=== PATIENT | male | born 1930 | race Caucasian/White ===

== ENCOUNTER 2016-12-30 16:44 | Inpatient (IN) | payer MEDICARE ==
[2016-12-30 17:32] LABS: #Lymphocytes 0.8 thou/uL (1.20-3.40); #Monocytes 0.7 thou/uL (0.11-0.59); #Neutrophils 8.6 thou/uL (1.40-6.50); %Basophils 0.1 % (0.0-1.0); %Eosinophils 0.1 % (0.0-10.0); %Lymphocytes 7.7 % (21.0-51.0); Hematocrit 32.4 % (42.0-52.0); Mean Platelet Volume 7.6 fL (7.4-10.4); Red Blood Cell (RBC) Count 3.31 mill/uL (4.70-6.10); White Blood Cell (WBC) Count 10.1 thou/uL (4.8-10.8)
[2016-12-30 17:53] LABS: Lactic Acid - Sepsis 1.4 mmol/L (0.5-2.2)
[2016-12-30 17:55] LABS: ALT (SGPT) 30 U/L (8-55); AST (SGOT) 32 U/L (5-34); Alkaline Phosphatase 80 U/L (40-150); Anion Gap 20 mmol/L (10-20); BUN (Urea Nitrogen) 98 mg/dL (8.4-25.7); Bilirubin, Total 0.3 mg/dL (0.2-1.2); CK (CPK) 864 U/L (30-200); Calc. Creatinine Clearance 0 mL/min (70-130); Calcium 9.5 mg/dL (7.8-10.44); Carbon Dioxide 20 mmol/L (23-31); Chloride 105 mmol/L (98-107); Estimated GFR-MDRD 5; Globulin 3.7 g/dL (2.4-3.5); Magnesium 1.8 mg/dL (1.6-2.6); Protein, Total 6.7 g/dL (5.8-8.1)
[2016-12-30 18:07] LABS: Bilirubin Negative (Negative); Blood, Urine Large (Negative); Glucose, Urine (Dipstick) 250 mg/dL (Negative); Ketone, Urine Trace mg/dL (Negative); Nitrite Negative (Negative); Protein, Urine (Dipstick) 30 mg/dL (Neg-Trace); Urobilinogen 0.2 mg/dL (0.2-1.0)
[2016-12-30 18:12] LABS: Bacteria/HPF Rare-Few HPF (None Seen); Hyaline Casts/LPF 4-6 HYALINE CAST LPF (0-3 Hyaline); RBC/HPF GREATER THAN 50-TNTC HPF (0-3); Squamous Epithelial 0-3 HPF (0-3)
[2016-12-30] MEDS ORDERED: cefTRIAXone\\ROCEPHIN 2 GM VIAL ONE (19:20)
[2016-12-30] MEDS ORDERED: Sodium Chloride 0.9% 100 ML ONE (19:22)
--- NOTE | 2016-12-30 20:20 | RAD ---
PORTABLE CHEST ONE VIEW: 12/30/16 at 6:05 p.m. HISTORY: Difficulty in mobility. FINDINGS: The heart size is normal. The aorta is tortuous. The lungs are expanded without focal areas of conso lidation, pneumothorax or pleural effusions. There are degenerative changes in the spine. IMPRESSION: No acute process. POS: [facility]
[2016-12-30 21:44] LABS: Troponin I 0.026 ng/mL (< 0.028)
--- NOTE | 2016-12-30 22:56 | ULT ---
BILATERAL RENAL ULTRASOUND: History: Acute renal injury. Increased BUN and creatinine. Gross hematuria. FINDINGS: The right kidney measures 11.1 cm in length and the left kidney measures 12.5 cm in length. There is a 1.7 cm cyst in the right kidney and a 2.9 cm cyst in the left mid kidney. Bilateral hydronephrosi s is present. The prostate is enlarged. The bladder wall is thickened measuring 2.1 cm. There is 5 cc of urine in the bladder. IMPRESSION: 1. Bilateral hydronephrosis. 2. Bilateral renal cysts. 3. Prostatic enlargement. POS: [facility]
[2016-12-30] MEDS ORDERED: Bisacodyl 5 MG TAB PO PRN (23:47)
[2016-12-30] MEDS ORDERED: Ondansetron HCl/PF 4 MG/2 ML Vial IVP PRN (23:47)
[2016-12-30] MEDS ORDERED: Acetaminophen 325 MG TAB PO PRN (23:47)
[2016-12-30] MEDS: Sodium Chloride 0.9% 1,000 ML IV SCH (23:50)
[2016-12-31 01:31] LABS: Troponin I 0.033 ng/mL (< 0.028)
--- NOTE | 2016-12-31 03:59 | HP ---
CHIEF COMPLAINT: Weakness. HISTORY OF PRESENT ILLNESS: This is an 86-year-old pleasant gentleman who was apparently in his white hospital state of health when the of the patient whose name is Swati called EMS stating that she want ed the patient to be in a detention because she cannot take care of him anymore. EMS went to her place evaluated the patient, found the patient on lying down on the floor helped him up, but at patria t point, the patient refuses any symptoms and so they put him up on the bed and the called the EMS again saying that he was weak that she could not take care of him and she wanted him to be in a detention and the patient was brought to our emergency room at that time, but initial blood work revealed possible evidence of urinary tract infection, but what was more alarming was a CK of 864 an d a creatinine of 9.27. His creatinine on 08/13/2016 was 2.5. He has been admitted for further adam luation and treatment of the weakness and acute on chronic kidney problem and possible treatment of the UTI. He denies any fever or chills when I speak to him right now, he denies any complaints at a ll, he says that he gets around quite a bit for his age. He admits to fall, but he says that it hap pens rarely because he is old and says that he is pretty independent for his day to day activity and takes his own bath and can feed himself. When the patient got here, his temperature was found to be 95 and they have been using the warming b lanket on him. PAST MEDICAL HISTORY: Significant for dementia and urinary incontinence. SURGICAL HISTORY: Denies any surgical history in the past. SOCIAL HISTORY: Denies alcohol use, drug use or smoking history. ALLERGIES: No known drug allergies. MEDICATIONS: Please see MAR. REVIEW OF SYSTEMS: Significant for weakness, history of dementia, history of falls. Otherwise, no fever, no chills, no headache, no appetite and latencies. No cough, no chest pain, diarrhea, dysuri a, or polyuria. No memory or mood changes. No neck pain. PHYSICAL EXAMINATION: VITAL SIGNS: Blood pressure is 140/80, pulse is 85, temperature right now is 97.4, and O2 sat is 98 . GENERAL: The patient is lying in bed, answering all questions appropriately. Breathing comfortably . HEENT: Atraumatic, normocephalic. Pupils equally round, reactive to light. Extraocular movements intact. Mucous membranes moist. NECK: Supple. No JVD. CHEST: Breath sounds. There are no rales or rhonchi. HEART: S1, S2 normal. No murmurs or gallops. ABDOMEN: Soft, nontender. EXTREMITIES: No cyanosis, clubbing, edema. Distal pulses present. NEUROLOGIC: The patient is alert, awake, oriented. Speech is normal, has decent strength in the ex tremities. LABORATORY DATA: Creatinine is 9.27, BUN is 98. WBC count is 10, hemoglobin is 11, albumin is 3.0, potassium is 4.6, troponin 0.03. EKG 91. Chest x-ray negative. ASSESSMENT AND PLAN: 1. Acute renal failure on chronic kidney disease. Dr. Harrison was contacted from the ER, he wants IV f luids of 100 mL per hour for now and renal ultrasound has been ordered and we will monitor BNP this hospital stay put the patient on renal diet. 2. Possible urinary tract infection, the rbc's are high as well as with wbc's. Urine culture, bloo d culture, nitrite is negative. We will empirically treat with vancomycin and Rocephin. We will de escalate antibiotic therapy following cultures. 3. Anemia. We will monitor this hospital stay. 4. Rhabdomyolysis, possibly secondary to lying on the floor. We will monitor CPK this hospital sta y. 5. Dementia appears to be mild. He answers all questions appropriately right now. 6. Sequential compression devices for deep venous thrombosis prophylaxis. Lea Penny whose num falguni is [phone], will be contacted soon this hospital stay to get more information about the [facility] [place]. I tried to calling them, but no one picked up. I will work with Dr. Harrison and further caring f or the patient.
[2016-12-31 04:07] LABS: Potassium, Urine 16.5 mmol/L
[2016-12-31 04:44] LABS: #Lymphocytes 1.1 thou/uL (1.20-3.40); #Monocytes 0.9 thou/uL (0.11-0.59); #Neutrophils 6.2 thou/uL (1.40-6.50); %Eosinophils 0.6 % (0.0-10.0); %Lymphocytes 13.2 % (21.0-51.0); %Monocytes 10.6 % (0.0-10.0); Hematocrit 30.1 % (42.0-52.0); Mean Platelet Volume 7.7 fL (7.4-10.4); Red Blood Cell (RBC) Count 3.05 mill/uL (4.70-6.10); White Blood Cell (WBC) Count 8.2 thou/uL (4.8-10.8)
[2016-12-31 05:08] LABS: Anion Gap 16 mmol/L (10-20); BUN (Urea Nitrogen) 91 mg/dL (8.4-25.7); CK (CPK) 462 U/L (30-200); Calc. Creatinine Clearance 6 mL/min (70-130); Calcium 8.8 mg/dL (7.8-10.44); Carbon Dioxide 18 mmol/L (23-31); Chloride 107 mmol/L (98-107); Estimated GFR-MDRD 6; Magnesium 1.6 mg/dL (1.6-2.6); Phosphorus 6.1 mg/dL (2.3-4.7)
[2016-12-31] MEDS ORDERED: FLU VACC TS2017-18 (>65YR) 0.5 ML SYRINGE IM ONE (09:00)
--- NOTE | 2016-12-31 09:25 | CON ---
DATE OF CONSULTATION: 12/31/2016 HISTORY OF PRESENT ILLNESS: Mr. Johnston is an 86-year-old white male who was admitted for generali zed weakness. During the initial evaluation, he was noted to be in acute kidney injury with a creat inine 9.27 mg percent. Empiric volume repletion was given. There was a slight improvement of the r enal function when the base met was rechecked this morning. He had also possible UTI. However, I did review the renal ultrasound, it showed bilateral hydronephrosis. We are being consulted for management of this patient's acute kidney injury on top of his possible c hronic renal failure. I have discussed with the nursing staff regarding Urology consult. REVIEW OF SYSTEMS: Positive for generalized malaise. No nausea, no vomiting, no gross hematuria, n o dysuria, no hematochezia, no melena, no hematemesis. Appetite fair. Energy level is fair. No he adache, no diplopia, no fever or chills, no chest pain, no shortness of breath. MEDICATIONS: Tylenol 650 mg q.4 h., normal saline 100 mL an hour, status post Pneumovax, Zofran 4 m g IV q.6 h. Status post ceftriaxone. Status post vancomycin. PAST MEDICAL HISTORY: 1. History of mild dementia. 2. Urinary incontinence. PAST SURGICAL HISTORY: Status post surgical repair of left hydrocele. SOCIAL HISTORY: The patient is and lives in [place]. Two children. Sedentary lifestyle. C urrently no alcohol or IV drug use. Currently not smoking. ALLERGIES: None. TRAUMA: None. IMMUNIZATIONS: Unknown. HOSPITALIZATIONS: Please see past medical history. FAMILY HISTORY: Noncontributory. PHYSICAL EXAMINATION: VITAL SIGNS: Blood pressure 158/80, heart rate 64, respiratory rate 18, temperature 97.5, pulse ox 96%. GENERAL: Awake, alert, oriented only to 2 spheres. SKIN: Decreased turgor. HEENT: Slightly pale conjunctivae, anicteric sclerae. NECK: No neck mass, no carotid bruits, no JVD. CHEST: No deformities. LUNGS: Clear breath sounds. No wheezing, no crackles. HEART: Normal sinus rhythm. No murmur, no gallops or rubs. ABDOMEN: Globular, soft, nontender, no masses. EXTREMITIES: No edema, no deformities. NEUROLOGIC: Moving all extremities. No tremors or asterixis. LABORATORY: 12/30/2016 - Urinalysis: Specific gravity is 1.017, protein is 30, RBCs greater than 5 0, WBC greater than 50. Urine sodium 61. 12/31/2016 - Sodium 137, potassium 4.4, chloride 107, carbon dioxide 18, BUN 91, creatinine 8.05, gl ucose 92, calcium 8.8, phosphorus 6.1. CK 462, albumin 2.7. 12/30/2016 - Creatinine 9.27. Further review of his serum creatinine shows the following; 07/27/2016 creatinine 2.56; 10/02/2015 - creatinine 1.49. White count is 8.2, hemoglobin 10.1. Chest x-ray of 12/30/2016, no CHF, no infiltrates. Renal ultrasound 12/31/2015 shows bilateral hydronephrosis. There is prostatic enlargement, bilater al renal cysts. ASSESSMENT AND PLAN: Acute kidney injury on top of his chronic renal failure. Renal ultrasound mohamud ws bilateral hydronephrosis. Urology consult will be done. Please note there is only 5 mL of urine noted in the bladder, making a low bladder outlet obstruction less likely with this patient. The patient is not clinically uremic. He is not volume overloaded or hyperkalemic and for that reas on, there is no emergent hemodialysis indicated for this patient. Continue supportive care. Contin ue gentle volume repletion. Urology consult has been done. We will insert a Patel catheter with th is patient. We will recheck another base met and CBC in a.m. For the moment, I agree with current supportive management.
--- NOTE | 2016-12-31 09:59 | CT ---
NONCONTRAST ABDOMEN AND PELVIS CT: Comparison: 12-29-03 Clinical history: Bilateral hydronephrosis. FINDINGS: Re-demonstration of an enlarged heterogeneous prostate gland, with a transverse diameter of 6.6 cm. The adjacent urinary bladder demonstrates marked abnormality with a soft tissue mass occupying the r ight posterolateral aspect, which is elliptiform in morphology, with an approximate diameter of 5.4 cm oblique x 2.5 cm in the periappendicular plane. There is mild wall thickening of the remainder of the urinary bladder with perivesicular stranding. Urinary bladder is mildly distended. There is rukhsana ateral moderate hydronephrosis and hydroureter. This is an incompletely assessed cyst of the postero lateral aspect of the left kidney and an exophytic hypodensity emanating from the upper pole right k idney, incompletely characterized on noncontrast imaging. 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 Moderate distention of the gallbladder noted. There are scattered hyperdensities of the hepatic parenchyma indicative of cysts, grossly stable from fabrice or exam. Mild pericardiac fluid is partially imaged. There is bibasilar pleural and parenchymal dens ity with minimal pleural fluid, pancreatic atrophy. There is a focal, oval fat density structure at the floor of the right pelvis. This may relate to a small lipoma or alternatively, may relate to fat insinuating between pelvic floor and musculature. O sseous degenerative change is present. Regional lymph nodes are limited in assessment by noncontrast technique. IMPRESSION: 1. 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 2. Enlarged prostate gland. 3. Bilateral hydroureter nephrosis moderate in degree. 4. Evaluation of the lymph nodes limited by noncontrast technique. POS: [facility]
[2016-12-31] MEDS: Sodium Chloride 0.9% 1,000 ML IV SCH ×2 (10:00→21:19)
--- NOTE | 2016-12-31 12:48 | PDOC.PN ---
- Subjective Encounter Start Date: 12/31/16 Encounter Start Time: 12:46 Patient seen and examined. No new complaints. No overnight events pt is oliguric - Objective MAR Reviewed: Yes Vital Signs & Weight: Vital Signs (12 hours) Temp Pulse Pulse Pulse Resp BP BP 12/31/16 12:00 97.5 F L 72 18 12/31/16 08:05 78 90 146/91 H 140/72 12/31/16 08:00 97.5 F L 64 18 12/31/16 04:00 98.0 F 73 20 BP Pulse Ox Pulse Ox Pulse Ox 12/31/16 12:00 142/67 H 100 12/31/16 08:05 97 98 12/31/16 08:00 158/80 H 96 12/31/16 04:00 145/67 H 98 Weight Weight 137 lb 9.6 oz I&O: 12/30/16 12/31/16 01/01/17 06:59 06:59 06:59 Intake Total 680 Output Total 50 Balance 630 Result Diagrams: 12/31/16 04:28 12/31/16 04:28 Phys Exam - Physical Examination Constitutional: NAD HEENT: PERRLA Neck: no JVD Respiratory: no rales Cardiovascular: no significant murmur Gastrointestinal: non-tender Musculoskeletal: pulses present Neurological: normal sensation Psychiatric: A&O x 3 Dx/Plan (1) Renal failure (ARF), acute on chronic Code(s): N17.9 - ACUTE KIDNEY FAILURE, UNSPECIFIED; N18.9 - CHRONIC KIDNEY DISEASE, UNSPECIFIED Status: Acute (2) Mass of urinary bladder Code(s): N32.89 - OTHER SPECIFIED DISORDERS OF BLADDER Status: Acute (3) Hydronephrosis Code(s): N13.30 - UNSPECIFIED HYDRONEPHROSIS Status: Acute (4) Dementia Code(s): F03.90 - UNSPECIFIED DEMENTIA WITHOUT BEHAVIORAL DISTURBANCE Status: Acute (5) BPH (benign prostatic hyperplasia) Code(s): N40.0 - BENIGN PROSTATIC HYPERPLASIA WITHOUT LOWER URINRY TRACT SYMP Status: Acute - Plan * cont current mx * f/u urology and renal plan * monitor renal function
--- NOTE | 2016-12-31 14:44 | CON ---
DATE OF CONSULTATION: 12/31/2016 HISTORY OF PRESENT ILLNESS: Mr. Johnston is an 86-year-old male who was transferred by EMS from his private residence due to renal failure. Patient lives in a private residence with his , his was unable to continue his ongoing care, EMS was called. The patient was found per note, lying down, workup demonstrated renal failure of creatinine of 9.27, his baseline creatinine last year was 1.4, later this year was 2.56. Patient is currently oriented to himself. Distant family at bedside per my request as patient is a poor historian. He denies history of gross hematuria and sensation of incomplete void. He denies significant tobacco abuse by history. Patient currently sleeping comfortably, easily arousable. The patient has been seen by Nephrology, not requiring hemodialysis at this time. Renal ultrasound demonstrated minimal urine in the bladder, however, demonstrated bilateral hydronephrosis. Given these clinical situations, I did recommend a CT stone protocol. CT does demonstrate bladder with large bladder mass resulting in hydronephrosis with enlarged prostate gland. No significant retroperitoneal lymphadenopathy is appreciated. PAST MEDICAL HISTORY: Per chart review, possible lymphoma followed by Dr. Dixon, history of BPH, history of dementia, and history of urinary incontinence. PAST SURGICAL HISTORY: None by chart review. SOCIAL HISTORY: Negative x3. ALLERGIES: No known drug allergies. CURRENT MEDICATIONS: Include Tylenol, Dulcolax, Zofran, and sodium. He was given Rocephin and vancomycin on admission. PHYSICAL EXAMINATION: VITAL SIGNS: Currently are stable, 97, 72, 18, 100%, and 142/67. Patient is incontinent. GENERAL: Patient is a thin, cachectic, elderly, frail male. HEENT: Grossly unremarkable. HEART: Regular rate. LUNGS: Clear. ABDOMEN: Soft. No CVA tenderness. No gross suprapubic tenderness is appreciated. GENITOURINARY: Uncircumcised phallus, meatus is unremarkable. Testes are descended. There is saturated diaper with yellow urine. No significant blood is noted. Straight cath was passed by nursing staff with no significant postvoid residual, pinked tinged urine which was removed. This patient was quite combative passing the catheter. This was subsequently removed per my request. RECTAL: Digital rectal exam demonstrates a very large prostate with no discrete nodules. EXTREMITIES: No cyanosis, clubbing or edema. PERTINENT LABORATORY DATA: White count is 8, hemoglobin 10, platelets 227, BUN 98, creatinine 9.27, and baseline creatinine is 1.49 in 09/2015, 2.56 on 2016 at admission, 12/30/2016 after 9.27, today it is 8.05, BUN of 91, potassium 4.6, troponins trip a serum lactic acid is normal at 1.4, troponin mildly elevated to normal, 0.03-26. Urinalysis demonstrates 250 of glucose, trace ketones, large blood, negative nitrites, large leukocytes, greater than 50 RBCs, greater than 50 WBCs, 0-3 epithelial cells, rare few bacteria. Cultures: Urine culture preliminary; young culture, final culture pending. Blood cultures negative. Renal ultrasound dated 12/30/2016, bilateral hydronephrosis, bilateral renal cyst, prostatic enlargement. There is only 5 mL of urine in the bladder. CT today's date 12/31/2016 compared to 01/04/2004, there is a large heterogenous prostate gland measuring 6.6 cm. There is a large soft tissue mass occupying the right posterolateral bladder, measuring 5.4 cm, with mild bladder wall thickening. Bilateral hydronephrosis and hydroureter secondary to a large bladder mass. There is aneurysmal dilation of the aorta measuring 3.6 cm. No obvious lymphadenopathy is appreciated; however , it is limited due to noncontrast. IMPRESSION/PLAN: Mr. Johnston is an 86-year-old male with history of lymphoma, benign prostatic hypertrophy, and dementia who was admitted with renal failure of BUN 98, creatinine of 9.27. Workup by Nephrology demonstrates minimal urine in the bladder with bilateral hydronephrosis. CT demonstrates large bladder mass with hydronephrosis. 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 High risk for surgical intervention given his advanced age was reviewed. Indications for TURBT for staging reviewed. Risks and complications including, but not limited to, bleeding, pain, infection, injury to adjacent organs such as bladder perforation, sepsis, clot retention reviewed. Given his advanced age and frail status, patient's extended family states that they will reach out to their elderly family, and will inform me regarding their disposition. As stated inquire regarding conservative observation, ie palliative care, this will be further addressed by the family. If they desired to proceed with surgical intervention, Cardiology consult clearance for TURBT would be advised. Family will let me know regarding final disposition.greater that 90min spent with patient, case management, contacted extended family to coordinate care and disposition. KEANU
--- NOTE | 2016-12-31 15:09 | EKG ---
Test Reason : Blood Pressure : / mmHG Vent. Rate : 067 BPM Atrial Rate : 067 BPM P-R Int : 182 ms QRS Dur : 110 ms QT Int : 412 ms P-R-T Axes : 071 -46 068 degrees QTc Int : 435 ms Normal sinus rhythm Left anterior fascicular block Cannot rule out Anterior infarct (cited on or before 13-AUG-2016) Abnormal ECG Confirmed by MANUEL WOO ([id number]) on 12/31/2016 3:08:46 PM Referred By: ROMAIN Confirmed By:MANUEL WOO
[2016-12-31 16:57] LABS: Troponin I 0.023 ng/mL (< 0.028)
--- NOTE | 2016-12-31 23:08 | CON ---
DATE OF CONSULTATION: 12/31/2016 HISTORY OF PRESENT ILLNESS: The patient is an unfortunate 86-year-old gentleman who presented with urinary retention and was noted to have elevated cardiac enzymes. The patient has no previous cardi ac history. He has chronic renal insufficiency. The patient presented after he had a fall. The pa rosemarie is confused, not able to give a coherent history. His enzymes were noted to be elevated. The patient denies having any chest pain. He denies having any dyspnea. PAST MEDICAL HISTORY: Significant for: 1. Chronic renal insufficiency. 2. Dementia. PAST SURGICAL HISTORY: . SOCIAL HISTORY: He is a former smoker. MEDICATIONS: Unknown to the patient. ALLERGIES: No known drug allergies. REVIEW OF SYSTEMS: Not obtainable. PHYSICAL EXAMINATION: GENERAL/VITAL SIGNS: Ill-appearing gentleman who is confused with a blood pressure of 142/67. HEENT: Poor dentition. NECK: No jugular venous distention. LUNGS: Clear to auscultation. HEART: Regular rate and rhythm. Normal S1, S2. ABDOMEN: Nondistended. EXTREMITIES: Showed no edema. SKIN: Warm and dry. NEUROLOGIC: He is alert and oriented x2. His vascular and radial pulses are 2+. LABORATORY DATA: Sodium 137, potassium 4.4, chloride 107, bicarbonate 18, BUN 91, creatinine is 8.0 . CPK was 864, MB was 40.5, and a troponin was 0.026. White blood cell count is 8.2, hemoglobin 10 .1, hematocrit 30.4, and his platelets 227. EKG revealed normal sinus rhythm with left axis deviati on, Q-waves suggestive of possible previous anteroseptal infarct. IMPRESSION: 1. Acute renal failure. 2. Elevated CPK, MB with normal troponin. 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 4. Anemia. 5. Dementia. This gentleman was found to have a bladder mass causing urinary retention, which resulted in acute r enal failure. The patient is unable to give a coherent history. From a cardiac standpoint, he is n ot an appropriate patient for invasive evaluation. He will be at increased risk of cardiac complica tions should he undergo general anesthesia for noncardiac surgery. An echocardiogram will be obtain ed. We would proceed with surgery if this is felt to be deemed necessary. We will follow this jazlyn ent with you through his hospitalization.
[2017-01-01 06:04] LABS: #Eosinphils 0.1 thou/uL (0.0-0.7); #Lymphocytes 0.9 thou/uL (1.20-3.40); #Monocytes 0.7 thou/uL (0.11-0.59); #Neutrophils 5.2 thou/uL (1.40-6.50); %Eosinophils 1.5 % (0.0-10.0); %Lymphocytes 12.7 % (21.0-51.0); %Monocytes 10.6 % (0.0-10.0); Hematocrit 30.4 % (42.0-52.0); Mean Platelet Volume 7.8 fL (7.4-10.4); Red Blood Cell (RBC) Count 3.07 mill/uL (4.70-6.10)
[2017-01-01] MEDS: Sodium Chloride 0.9% 1,000 ML IV SCH ×2 (06:35→17:37)
[2017-01-01 06:37] LABS: Anion Gap 15 mmol/L (10-20); BUN (Urea Nitrogen) 75 mg/dL (8.4-25.7); BUN/Creatinine Ratio 11.74; CK (CPK) 225 U/L (30-200); Calc. Creatinine Clearance 7 mL/min (70-130); Calcium 8.6 mg/dL (7.8-10.44); Carbon Dioxide 19 mmol/L (23-31); Chloride 107 mmol/L (98-107); Estimated GFR-MDRD 8; Phosphorus 4.9 mg/dL (2.3-4.7)
--- NOTE | 2017-01-01 09:32 | PRG ---
DATE OF SERVICE: 01/01/2017 SUBJECTIVE: Mr. Johnston is an 86-year-old white male who was seen for an acute kidney injury on to p of his chronic heart failure. He was found to have bilateral hydronephrosis. He was also empiric ally volume repleted. His initial creatinine was noted at 9.27; it is now currently at 6.39. He wa s also seen by Urology. An imaging of the abdomen was done, and it showed a bladder mass. The jazlyn ent denies any chest pain or shortness of breath. He is somewhat confused this morning. PHYSICAL EXAMINATION: VITAL SIGNS: Blood pressure is 176/73, heart rate 71, respiratory rate 18, temperature 97.5, pulse ox 100%. GENERAL EXAM: Noted to be awake, somewhat confused, but not in distress. SKIN: Decreased turgor. HEENT: Pinkish conjunctivae, anicteric sclerae. NECK: No neck mass, no carotid bruits, no JVD. CHEST: No deformities. LUNGS: Decreased breath sounds. No wheezing, no crackles. HEART: Normal sinus rhythm. No murmur, no gallops, no rubs. ABDOMEN: Globular, soft, nontender, no masses. EXTREMITIES: No edema. MEDICATIONS: Medications of 01/01/2017 were reviewed. LABORATORY DATA: Laboratories of 01/01/2017, white count 7, hemoglobin 10.2, hematocrit 30.4. Sodi um 137, potassium 3.9, chloride 107, carbon dioxide 19, BUN 75, creatinine 6.39, glucose 86. Phosph orus is 4.9, CK 225, albumin 2.6. 12/31/2016: CT scan of the abdomen and pelvis, prominent urinary bladder mass compatible with malig john. He has also enlarged prostate gland. He has bilateral hydronephrosis, moderate in degree. ASSESSMENT AND PLAN: 1. Acute kidney injury -- multifactorial. Maybe a combination of bilateral hydronephrosis as well as some degree of volume depletion. Continuing current gentle volume repletion. No indication for any emergent dialytic intervention. 2. Bilateral hydronephrosis -- secondary to obstruction with a bladder mass. Urology has been cons ulted. Consideration for hospice is being entertained due to the advanced age of this patient. Fam dougie decision is being awaited. For the moment, agree with current management.
--- NOTE | 2017-01-01 13:25 | PDOC.PN ---
- Subjective Encounter Start Date: 01/01/17 Encounter Start Time: 13:09 Patient seen and examined. No new complaints. No overnight events - Objective MAR Reviewed: Yes Vital Signs & Weight: Vital Signs (12 hours) Temp Pulse Pulse Resp BP BP Pulse Ox 01/01/17 11:00 98.1 F 73 18 164/73 H 95 01/01/17 08:34 97 167/75 H 01/01/17 08:00 97.5 F L 71 18 100 01/01/17 07:44 97 01/01/17 07:00 97.5 F L 71 18 176/73 H 100 01/01/17 03:00 97.9 F 78 16 155/84 H 96 Weight Weight 140 lb 8 oz I&O: 12/31/16 01/01/17 01/02/17 06:59 06:59 06:59 Intake Total 680 4020 240 Output Total 50 Balance 630 4020 240 Result Diagrams: 01/01/17 04:43 01/01/17 04:43 Phys Exam - Physical Examination Constitutional: NAD HEENT: PERRLA Neck: no JVD Respiratory: no wheezing Cardiovascular: no significant murmur Gastrointestinal: non-tender Musculoskeletal: pulses present Neurological: moves all 4 limbs Dx/Plan (1) Renal failure (ARF), acute on chronic Code(s): N17.9 - ACUTE KIDNEY FAILURE, UNSPECIFIED; N18.9 - CHRONIC KIDNEY DISEASE, UNSPECIFIED Status: Acute (2) Mass of urinary bladder Code(s): N32.89 - OTHER SPECIFIED DISORDERS OF BLADDER Status: Acute (3) Hydronephrosis Code(s): N13.30 - UNSPECIFIED HYDRONEPHROSIS Status: Acute (4) Dementia Code(s): F03.90 - UNSPECIFIED DEMENTIA WITHOUT BEHAVIORAL DISTURBANCE Status: Acute (5) BPH (benign prostatic hyperplasia) Code(s): N40.0 - BENIGN PROSTATIC HYPERPLASIA WITHOUT LOWER URINRY TRACT SYMP Status: Acute - Plan * cardilogy, urology and renal input appreciated * palliative care consulted * cont current mx
[2017-01-01 13:55] VITALS: BMI 21.9
[2017-01-02 04:48] LABS: #Eosinphils 0.1 thou/uL (0.0-0.7); #Lymphocytes 1.3 thou/uL (1.20-3.40); #Monocytes 0.8 thou/uL (0.11-0.59); #Neutrophils 5.7 thou/uL (1.40-6.50); %Basophils 0.5 % (0.0-1.0); %Eosinophils 1.4 % (0.0-10.0); %Lymphocytes 16.5 % (21.0-51.0); %Monocytes 10.5 % (0.0-10.0); Hematocrit 27.9 % (42.0-52.0); Mean Platelet Volume 7.5 fL (7.4-10.4); Red Blood Cell (RBC) Count 2.87 mill/uL (4.70-6.10)
[2017-01-02 05:17] LABS: Anion Gap 14 mmol/L (10-20); BUN (Urea Nitrogen) 73 mg/dL (8.4-25.7); CK (CPK) 106 U/L (30-200); Calc. Creatinine Clearance 7 mL/min (70-130); Calcium 8.3 mg/dL (7.8-10.44); Carbon Dioxide 17 mmol/L (23-31); Chloride 109 mmol/L (98-107); Estimated GFR-MDRD 8
--- NOTE | 2017-01-02 11:22 | PDOC.PN ---
- Subjective Encounter Start Date: 01/02/17 Encounter Start Time: 11:20 Patient seen and examined. No new complaints. No overnight events - Objective MAR Reviewed: Yes Vital Signs & Weight: Vital Signs (12 hours) Temp Pulse Resp BP Pulse Ox 01/02/17 11:11 97.9 F 73 16 151/61 H 97 01/02/17 08:00 98.2 F 70 16 98 01/02/17 06:52 98.2 F 70 16 147/89 H 98 01/02/17 04:00 98.6 F 81 22 H 128/78 96 Weight Admit Weight 137 lb 9.6 oz Weight 143 lb 3.2 oz I&O: 01/01/17 01/02/17 01/03/17 06:59 06:59 06:59 Intake Total 4020 3080 Balance 4020 3080 Result Diagrams: 01/02/17 04:10 01/02/17 04:10 Phys Exam - Physical Examination Constitutional: NAD HEENT: PERRLA Neck: no JVD Respiratory: no rales Cardiovascular: no significant murmur Gastrointestinal: no distention Musculoskeletal: pulses present Neurological: moves all 4 limbs Dx/Plan (1) Renal failure (ARF), acute on chronic Code(s): N17.9 - ACUTE KIDNEY FAILURE, UNSPECIFIED; N18.9 - CHRONIC KIDNEY DISEASE, UNSPECIFIED Status: Acute (2) Mass of urinary bladder Code(s): N32.89 - OTHER SPECIFIED DISORDERS OF BLADDER Status: Acute (3) Hydronephrosis Code(s): N13.30 - UNSPECIFIED HYDRONEPHROSIS Status: Acute (4) Dementia Code(s): F03.90 - UNSPECIFIED DEMENTIA WITHOUT BEHAVIORAL DISTURBANCE Status: Acute (5) BPH (benign prostatic hyperplasia) Code(s): N40.0 - BENIGN PROSTATIC HYPERPLASIA WITHOUT LOWER URINRY TRACT SYMP Status: Acute - Plan * pt has opted for hospice and has been accepted * d/c to hospice
[2017-01-02 15:31] VITALS: BP 154/77; TEMP 98.7
--- NOTE | 2017-01-02 21:40 | DIS ---
DATE OF ADMISSION: 12/30/2016 DATE OF DISCHARGE: 01/02/2017 DISCHARGE DIAGNOSES: Urinating mass, acute on chronic renal failure, anemia, rhabdomyolysis, ra ia, ascites, possible urinary tract infection. DISCHARGE MEDICATIONS: Same as admit medications. DISPOSITION: Hospice. CONSULTATIONS: The patient's consultants on the case were Cardiology, Urology and Renal. BRIEF HOSPITAL COURSE: An 86-year-old pleasant gentleman who was brought to the hospital with weakn ess. Please refer to my admitting H\T\P for further details. Dr. Harrison evaluated the patient and sta rted the patient on some IV fluids. His creatinine improved. Ultrasound showed hydronephrosis and a CT scan was done by Dr. Genao, the urologist who found mass in the urine. Cardiology was co nsulted to see if the patient was a cardiac candidate and he was a quite high risk candidate for bishnu rhea. Palliative care was consulted and they spoke to the family and the patient and family right n ow has opted for hospice arrangements and that has been made. The patient is medically stable to be transferred to hospice. Total time for this discharge took 35 minutes.
== END 2017-01-02 16:38 | disposition hospice, home (50) | DRG 683 ==
LOC: ERS 16:44 → IMCU/EMU 23:21
PROVIDERS: ADMIT Internal Medicine; ATTEND Internal Medicine
DX: N17.9 Acute kidney failure, unspecified (principal); M62.82 Rhabdomyolysis; R18.8 Other ascites; F03.90 Unspecified dementia, unspecified severity, without behavioral disturbance, psychotic disturbance, mood disturbance, and anxiety; I50.9 Heart failure, unspecified; E86.9 Volume depletion, unspecified; N39.0 Urinary tract infection, site not specified; D64.9 Anemia, unspecified; N18.9 Chronic kidney disease, unspecified; N13.30 Unspecified hydronephrosis; N32.9 Bladder disorder, unspecified; N40.1 Benign prostatic hyperplasia with lower urinary tract symptoms; R33.8 Other retention of urine; Z51.5 Encounter for palliative care; Z87.891 Personal history of nicotine dependence
CPT/HCPCS: 36415; 51701; 71010; 74176; 76770; 80048; 80053; 80069; 81003; 81015; 82550; 82553; 83605; 83735; 84100; 84133; 84300; 84484; 85025; 87040; 87086; 93005; 93010; 93306; 96361; 96365; 96367; G8978-GP-CM; G8979-GP-CK; G8987-GO-CJ; J0696; J3370; J7050